=== PATIENT | male | born 1945 | race Caucasian/White ===

== ENCOUNTER → 2018-03-12 09:53 | Outpatient (CLI) | payer MEDICARE, SELFPAY ==
[2018-03-12 11:14] LABS: Add Manual Diff / Slide Review NO; Basophils Percent Auto 2.1 % (0-2); Eosinophils Percent Auto 3.5 % (2-4); Hematocrit 43.6 % (41-53); Hemoglobin 15.3 g/dL (13.5-17.5); Lymphocytes Percent Auto 28.5 % (25-40); Mean Corpuscular HGB Conc 35.2 % (30-36); Mean Corpuscular Hemoglobin 32.2 PG (26-34); Mean Corpuscular Volume 91.6 fL (80-100); Monocytes Percent Auto 8.7 % (3-14); Neutrophils Absolute Auto 4300 /uL (3000-5900); Neutrophils Percent Auto 57.2 % (50-75); Platelet Count 288 X10^3/uL (150-400); Red Blood Cell Count 4.76 X10^6/uL (4.5-5.9); Red Cell Distribution Width 13.5 % (11.6-14.8); White Blood Cell Count 7.4 X10^3/uL (4.5-11.0)
[2018-03-12 11:54] LABS: Alanine Aminotransferase 39 IU/L (21-72); Albumin 4.2 g/dL (3.5-5.0); Albumin Globulin Ratio 1.2 (1.0-2.8); Alkaline Phosphatase 39 U/L (38-126); Aspartate Aminotransferase 29 IU/L (17-59); Bilirubin Total 0.7 mg/dL (0.2-1.3); Blood Urea Nitrogen 19 mg/dL (9-20); Calcium 9.3 mg/dL (8.4-10.2); Carbon Dioxide 25 mmol/L (22-32); Chloride 105 mmol/L (98-107); Cholesterol 179 mg/dL (140-199); Estimated Glomerular Filt Rate > 60.0 mL/min (>60); Globulin 3.5 g/dL (1.7-4.1); Glucose 111 mg/dL (80-110); HDL Cholesterol 42 mg/dL (40-60); HEMOLYSIS < 15 (0-50); LDL Cholesterol Calculated 121 mg/dL (<100); Sodium 141 mmol/L (137-145); Total Protein 7.7 g/dL (6.3-8.2); Triglycerides 81 mg/dL (35-150)
[2018-03-12 12:19] LABS: Prostate Specific Antigen < 0.064 ng/mL (0.10-4.00)
== END ==
PROVIDERS: PCP Family Medicine; Visit Provider Family Medicine
DX: I10 Essential (primary) hypertension (principal); E78.00 Pure hypercholesterolemia, unspecified
CPT/HCPCS: 36415; 80053; 80061; 84153; 85025

== ENCOUNTER → 2019-09-16 10:22 | Outpatient (CLI) | payer MEDICARE, SELFPAY ==
[2019-09-16 11:58] LABS: Blood Urea Nitrogen 23 mg/dL (9-20); Calcium 9.9 mg/dL (8.4-10.2); Carbon Dioxide 22 mmol/L (22-32); Chloride 105 mmol/L (98-107); Estimated Glomerular Filt Rate > 60.0 mL/min (>60); Glucose 118 mg/dL (80-110); HEMOLYSIS < 15 (0-50); Potassium 4.2 mmol/L (3.4-5.1); Sodium 138 mmol/L (137-145)
[2019-09-16 12:13] LABS: Vitamin D 25 Hydroxy (D3) 26.7 ng/mL (30.0-100.0)
[2019-09-16 12:28] LABS: Prostate Specific Antigen < 0.064 ng/mL (0.10-4.00)
== END ==
PROVIDERS: PCP Student in an Organized Health Care Education/Training Program; Referring Provider Student in an Organized Health Care Education/Training Program; Visit Provider Student in an Organized Health Care Education/Training Program
DX: E55.9 Vitamin D deficiency, unspecified (principal); I10 Essential (primary) hypertension; Z85.46 Personal history of malignant neoplasm of prostate
CPT/HCPCS: 36415; 80048; 82306; 84153

== ENCOUNTER → 2019-10-28 12:44 | Outpatient (CLI) | payer MEDICARE, SELFPAY ==
[2019-10-31 06:56] LABS: Fecal Immunochemical Test Negative (Negative)
== END ==
PROVIDERS: PCP Student in an Organized Health Care Education/Training Program; Referring Provider Student in an Organized Health Care Education/Training Program; Visit Provider Student in an Organized Health Care Education/Training Program
DX: Z12.11 Encounter for screening for malignant neoplasm of colon (principal)
CPT/HCPCS: 82274

== ENCOUNTER → 2020-09-21 11:38 | Outpatient (CLI) | payer MEDICARE, SELFPAY ==
[2020-09-21 13:04] LABS: BUN Creatinine Ratio 16.3 (6-22); Blood Urea Nitrogen 16 mg/dL (9-20); Calcium 9.4 mg/dL (8.4-10.2); Carbon Dioxide 25 mmol/L (22-32); Chloride 104 mmol/L (98-107); Estimated Glomerular Filt Rate > 60.0 mL/min (>60); Glucose 136 mg/dL (80-110); HEMOLYSIS < 15 (0-50); Potassium 4.4 mmol/L (3.4-5.1); Sodium 134 mmol/L (137-145)
[2020-09-21 13:33] LABS: Prostate Specific Antigen < 0.064 ng/mL (0.10-4.00)
== END ==
PROVIDERS: PCP Student in an Organized Health Care Education/Training Program; Referring Provider Student in an Organized Health Care Education/Training Program; Visit Provider Student in an Organized Health Care Education/Training Program
DX: Z85.46 Personal history of malignant neoplasm of prostate (principal); I10 Essential (primary) hypertension
CPT/HCPCS: 36415; 80048; 84153

== ENCOUNTER → 2020-10-20 15:06 | Outpatient (CLI) | payer MEDICARE, SELFPAY ==
[2020-10-21 18:27] LABS: Fecal Immunochemical Test Negative (Negative)
== END ==
PROVIDERS: PCP Student in an Organized Health Care Education/Training Program; Referring Provider Student in an Organized Health Care Education/Training Program; Visit Provider Student in an Organized Health Care Education/Training Program
DX: Z12.11 Encounter for screening for malignant neoplasm of colon (principal)
CPT/HCPCS: 82274

== ENCOUNTER → 2021-09-13 10:47 | Outpatient (CLI) | payer MEDICARE, SELFPAY ==
[2021-09-13 14:36] LABS: Prostate Specific Antigen < 0.064 ng/mL (0.10-4.00)
[2021-09-13 14:43] LABS: Blood Urea Nitrogen 15 mg/dL (9-20); Calcium 9.4 mg/dL (8.4-10.2); Carbon Dioxide 24 mmol/L (22-32); Chloride 106 mmol/L (98-107); Estimated Glomerular Filt Rate > 60.0 mL/min (>60); Glucose 82 mg/dL (80-110); HEMOLYSIS 17 (0-50); Potassium 4.6 mmol/L (3.4-5.1); Sodium 138 mmol/L (137-145)
[2021-09-13 16:53] LABS: Vitamin D 25 Hydroxy (D3) 34.5 ng/mL (30.0-100.0)
== END ==
PROVIDERS: PCP Student in an Organized Health Care Education/Training Program; Referring Provider Student in an Organized Health Care Education/Training Program; Visit Provider Student in an Organized Health Care Education/Training Program
DX: Z85.46 Personal history of malignant neoplasm of prostate (principal); E55.9 Vitamin D deficiency, unspecified; E87.1 Hypo-osmolality and hyponatremia; I10 Essential (primary) hypertension
CPT/HCPCS: 36415; 80048; 82306; 84153

== ENCOUNTER → 2022-01-04 13:59 | Outpatient (CLI) | payer MEDICARE, SELFPAY ==
--- NOTE | 2022-01-04 14:02 | DI.RAD.S_ITS ---
PROCEDURE: XR SHOULDER LT MIN 2V INDICATIONS: shoulder pain TECHNIQUE: 3 views of the shoulder were acquired. COMPARISON: None. FINDINGS: Bones: Mildly displaced mid left clavicular fracture with nonunion. No suspicious bony lesions. Visualized ribs appear intact. Soft tissues: No suspicious soft tissue calcifications. 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 Dictated by: Roz Arechiga M.D. on 01/04/2022 at 16:26 Approved by: Roz Arechiga M.D. on 01/04/2022 at 16:26
== END ==
PROVIDERS: PCP Student in an Organized Health Care Education/Training Program; Referring Provider Nurse Practitioner Family; Visit Provider Nurse Practitioner Family
DX: S46.912A Strain of unspecified muscle, fascia and tendon at shoulder and upper arm level, left arm, initial encounter (principal); S42.022K Displaced fracture of shaft of left clavicle, subsequent encounter for fracture with nonunion
CPT/HCPCS: 73030

== ENCOUNTER → 2022-02-01 11:53 | Outpatient (CLI) | payer MEDICARE, SELFPAY ==
[2022-02-01 13:35] LABS: COVID19 -Nasal RAPID Negative (Negative)
== END ==
PROVIDERS: PCP Student in an Organized Health Care Education/Training Program; Visit Provider Surgery
DX: Z20.822 Contact with and (suspected) exposure to COVID-19 (principal); Z01.812 Encounter for preprocedural laboratory examination
CPT/HCPCS: 87635; C9803

== ENCOUNTER 2022-02-02 10:37 | Day surgery (SDC) | payer MEDICARE, SELFPAY ==
[2022-02-02] VITALS (7 sets, daily range): BP systolic 95–139; BP diastolic 59–88; PULSE 81–97; RESP 16–19; TEMP 35.8–36.1; O2SAT 94–98; BMI 31.1
--- NOTE | 2022-02-02 | PATH_ITS ---
[facility] Accession Number: [id number] . 01 Material submitted: . colon - TRANSVERSE COLON POLYP . 01 Clinical history: . COLONOSCOPY ENCOUNTER FOR SCREENING FOR MALIGNANT NEOPLASM . 01 Diagnosis: Tranverse Colon Polyp, Biopsy: Tubular adenoma. MRV 02/06/2022 1159 Local . 01 Electronically signed: . Raz Leigh MD, PhD, Pathologist NPI- [id number] . 01 Gross description: . TRANSVERSE COLON POLYP: Received in formalin are 2 fragment(s) of tucker, soft tissue measuring 0.3 x 0.2 x 0.2 cm to 0.3 x 0.1 x 0.1 cm submitted entirely in 1 cassette(s) /CPE 02/03/2022 0329 Local . 01 Pathologist provided ICD-10: D12.3 . 01 CPT . 909330 Specimen Comment: A courtesy copy of this report has been sent to [phone] Performed at: 01 [facility] [address] [place] [address] [address] [facility], [place], [place] [id number] MD Jonh Retana MD Phone: [phone]
[2022-02-02] MEDS: LACTATED RINGERS 1,000 ML 200 ML IV (11:21)
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
[2022-02-02] MEDS: MIDAZOLAM 5 MG/5 ML VIAL 6 MG IV (12:08)
[2022-02-02] MEDS: fentaNYL 250 MCG/5 ML INJ 100 MCG IV (12:08)
--- NOTE | 2022-02-02 12:15 | PM.OP.COLON ---
Operative Date/Time/Diagnoses Date of procedure: 02/02/22 Time of procedure: 12:15 Pre-op diagnosis: Personal history of colonic polyps Post-op diagnosis: same Procedure & Clinicians Study performed: Colonoscopy Same procedure as scheduled: Yes Indications: Personal history of colonic polyps Surgeon: David Martinez Procedure Notes Procedure in detail: Medications: Conscious sedation using 6mg IV midazolam and 100mcg IV of fentanyl The history and physical was performed/updated and the patient is ASA class is 2. The procedure was discussed in detail with the patient. Potential risks complications including infection, bleeding, missed diagnosis, perforation, need for surgery, and were explained. Their questions were answered and informed consent was obtained. Patient was brought to the procedure room and placed standard monitoring equipment. The patient's vital signs were monitored continuously throughout the entire procedure. Prior to starting time-out was performed. The patient was placed in the left lateral recumbent position. Procedural sedation was administered. Examination began with a thorough inspection of the perianal area there was no evidence of fissures, fistulae, external hemorrhoids or cutaneous malignancy. The colonoscopy scope was then placed into the anal canal and was advanced to the cecum, which was identified by the ileocecal valve, the appendiceal orifice and the confluence of the taenia. The scope was then slowly withdrawn examining colon thoroughly in all directions, irrigating it of any residual stool. FINDINGS 1. Transverse colon-8 mm a polyp removed with cold snare 2. Sigmoid [id number] 3. Internal hemorrhoids The patient tolerated the procedure well. They will be discharged once criteria are met. The prep was of good/excellent quality. The withdrawl time was 6 minutes. The sedation time was 23 minutes. Specimen(s): other (Transverse colonic polyp) Complications: none Impression: Colonic polyp Post-procedure Recommendations: Colonoscopy in 5 years and High fiber diet Disposition: same day surgery
== END 2022-02-02 12:50 | disposition home or self-care (01) ==
PROVIDERS: PCP Student in an Organized Health Care Education/Training Program; Referring Provider Surgery; Visit Provider Surgery
PROC: 0DJD8ZZ Inspection of Lower Intestinal Tract, Via Natural or Artificial Opening Endoscopic (ICD-10-PCS; CPT 45378; principal; 2022-02-02 12:45)
DX: Z12.11 Encounter for screening for malignant neoplasm of colon (principal); Z86.010 Personal history of colon polyps; K57.30 Diverticulosis of large intestine without perforation or abscess without bleeding; K64.8 Other hemorrhoids; J44.9 Chronic obstructive pulmonary disease, unspecified; I10 Essential (primary) hypertension; E78.5 Hyperlipidemia, unspecified; F41.9 Anxiety disorder, unspecified; Z85.820 Personal history of malignant melanoma of skin; D12.3 Benign neoplasm of transverse colon
CPT/HCPCS: 45385; 99152; J2250; J3010

== ENCOUNTER 2022-03-21 09:45 | Outpatient (RCR) | payer MEDICARE, SELFPAY ==
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
--- NOTE | 2022-02-20 17:24 | PT.OPPOC ---
Physical, Occupational & Speech Therapy At [facility] Current Diagnoses Other specific arthropathies, not elsewhere classified, left shoulder (02/20/22) Fracture of unspecified part of left clavicle, subsequent encounter for fracture with nonunion (02/20/22) Visit Care Team Role Provider Type Tariq Schaefer MD Attending Provider Physician Family Provider Primary Care Provider Referring Provider Specialty: Internal Medicine Address: [address] [place] [address], [facility] [address], [address] Email: [email or web address] Plan Of Care PT-OP-T Assessment and Plan Start: 02/16/22 16:52 Freq: Status: Active Protocol: Document 02/20/22 15:16 SAK (Rec: 02/20/22 15:46 SAK [id number]) Physical Therapy Assessment Rehab Potential Rehabilitation Potential Good Evaluation Complexity Number of Personal Factors/Comorbidities 1-2 Number of Body Systems Impaired 3 Clinical Presentation at Evaluation Evolving Impairments Impairments Pain,Posture,ROM,Strength Goals Strength Impairment weakness Impairment left shoulder weakness Short Term Goal (STG) patient to be instructed in HEP focused on left shoulder strengthening and stabilization STG Duration 03/23/22 Nursing Home Goal (LTG) Patient will be independent and compliant with HEP and demonstrate 5/5 muscle strength left shoulder to help him return to all usual activities. LTG Duration 05/21/22 activity tolerance Impairment unable to reach overhead or behind his back with left UE without pain Nursing Home Goal (LTG) patient will demonstrate the ability to reach overhead and behind his back without pain or impingement symptoms to allow him to return to all prior activities including ADL 's and gardening LTG Duration 05/21/22 shoulder pain Impairment as high as 7/10 Nursing Home Goal (LTG) Decrease left shoulder pain to no greater than 2/10 with all usual activities LTG Duration 05/21/22 Assessment Summary Assessment Patient is a 76 year old man presenting to PT with c/o left shoulder pain after moving large rock in his garden. Symptoms have improved some since initial injury 4 months ago, but pain and some impingement symptoms persist, and he has limitations in his range of motion and strength in the left shoulder as well as postural impairment which appears contributory to his persistent symptoms. Additionally has old left clavicular fracture which healed poorly which is likely contributory as well. Feel he would benefit from PT to decrease his pain, improve his ROM, strength, and functional use of his left UE to allow him to return to al prior activities. He is highly motivated and agreed with POC. Physical Therapy Plan Frequency and Duration Frequency of Treatment 2x/Week Duration of Treatment 12 weeks Plan of Care Start Date 02/20/22 Plan of Care End Date 05/21/22 Therapeutic Interventions Therapeutic Interventions Home Exercise Program,Manual Therapy,Patient/Caregiver Education,Self-Care/Home Management,Soft Tissue Mobilization,Taping, Therapeutic Activities, Therapeutic Exercises Modalities Cold Pack/Ice Massage,Electric Stimulation,Hot Packs, Iontophoresis,Ultrasound Next Visit Focus/Plan Next Note Type Treatment Note Next Visit Plan Review HEP, postural education with ther ex for postural correction to improve shoulder alignment, ROM and strengthening exercises. Modalities and manual therapy as indicated. Plan of Care Dates Plan of Care Start Date 02/20/22 Plan of Care End Date 05/21/22 Electronically Signed by: Trang Musa, PT 02/21/22 [id number] If you are in agreement with this Plan of Care, please return a signed and dated copy. I have reviewed this Plan of Care and certify that the skilled therapy services above are required to meet the patient?s needs. Physician Signature Date Printed Name and Credentials Clinical Instructor Signature Printed Name and Credentials
--- NOTE | 2022-02-28 17:25 | PT.OTN ---
Current Diagnoses Other specific arthropathies, not elsewhere classified, left shoulder (02/28/22) Fracture of unspecified part of left clavicle, subsequent encounter for fracture with nonunion (02/28/22) Physical Therapy Treatment Note PT-OP-A Visit Information Start: 02/16/22 16:52 Freq: Status: Active Protocol: Document 02/28/22 15:14 SAK (Rec: 02/28/22 15:57 [facility] [id number]) Out-Patient Physical Therapy Visit Information Visit Information Visit Type Treatment Note Visit Start Time 15:15 Visit Stop Time 16:10 Total Visit Minutes 55 Visit Number 2 Evaluation Information Evaluation Date 02/20/22 PT-OP-B Current Condition Start: 02/16/22 16:52 Freq: Status: Active Protocol: Document 02/20/22 15:16 SAK (Rec: 02/20/22 15:46 SAK [id number]) Current Condition History of Current Condition Onset Date 4 months Current Complaints left shoulder pain History of Current Condition moving a large rock in flower beds on a dol[place], pulling back , within the next week onset of pain. Prior surgery due to impingement in 97 or 98. When pain first started felt like the prior impingement. Saw Dr. Schaefer, got pain pills due to interrupted sleep. Now never wakes him up, but still some difficulty lifting overhead and behind his back. Prior fractured clavicle with poor healing. Carpal tunnel syndrome. Not doing any exercises Prior Treatments and Tests x-ray Future Testing and Treatments Planned return to doctor if PT not helpful. Prior Functional Status Baseline Function- ADL's Independent Baseline Function- Mobility Independent Baseline Function- Work/School retired Baseline Function- Recreation/Hobbies no limitations Current Functional Impairments (Reported) Functional Limitations- ADL's painful Functional Limitations- Recreation/ painful Hobbies PT-OP-C Subjective Start: 02/16/22 16:52 Freq: Status: Active Protocol: Document 02/28/22 15:14 SAK (Rec: 02/28/22 15:57 [facility] [id number]) OP-PT Subjective Patient Comments Patient Comments Feeling about 50%, using 8 pounds for overhead press, doing HEP, still feeling some tightness. PT-OP-H Neuro Start: 02/16/22 16:52 Freq: Status: Active Protocol: Document 02/20/22 15:16 SAK (Rec: 02/20/22 15:46 [facility] [id number]) Sensation Evaluation Gross Sensation Gross Sensation WNL Comments Summary Comments initially some N/T, no longer PT-OP-J Posture/Palpation/Skin Start: 02/16/22 16:52 Freq: Status: Active Protocol: Document 02/20/22 15:16 [facility] (Rec: 02/21/22 17:21 [facility] [id number]) Posture Evaluation Position Standing Head/C-Spine Posture Forward Head T-Spine Posture Increased Kyphosis Scapula Posture (L) Protracted,(R) Protracted Arm Posture (L) Internally Rotated,(R) Internally Rotated Palpation Assessment Location RC left Palpation Findings Muscle Guarding,Tenderness PT-OP-K Range of Motion Start: 02/16/22 16:52 Freq: Status: Active Protocol: Document 02/20/22 15:16 [facility] (Rec: 02/20/22 15:46 [facility] [id number]) Cervical Spine Range of Motion Cervical Spine Active Testing Position Sitting Comments mild tightness, no increase in pain Shoulder Goniometric Range of Motion Shoulder Left Active Shoulder ROM WFL No Flexion 154 Extension 14 Abduction 123 External Rotation at 45 degrees 56 Abduction Internal Rotation Behind Back (text) top of buttock Right Active Shoulder ROM WFL Yes Internal Rotation Behind Back (text) T8 Shoulder ROM Limitations Shoulder ROM Limitations Pain Elbow/Forearm Range of Motion Elbow/Forearm jojo Elbow/Forearm ROM WFL Yes PT-OP-L Special Tests Start: 02/16/22 16:52 Freq: Status: Active Protocol: Document 02/20/22 15:16 [facility] (Rec: 02/21/22 17:21 [facility] [id number]) Special Tests Shoulder Special Tests Elevation Impingement Test Results positive Grind Labrum Test Results negative AC Joint Compression Test Results positive Belly Press Test Results negative PT-OP-M Strength Start: 02/16/22 16:52 Freq: Status: Active Protocol: Document 02/20/22 15:16 [facility] (Rec: 02/21/22 17:21 [facility] [id number]) Shoulder Strength Shoulder Manual Muscle Testing Left Flexion 3- Fair- Extension 4- Good- Abduction (C5) 3- Fair- External Rotation 3+ Fair+ Internal Rotation 4- Good- Right Flexion 5 Normal Extension 5 Normal Abduction (C5) 5 Normal Adduction 5 Normal External Rotation 4+ Good+ Internal Rotation 5 Normal PT-OP-Q Treatments Start: 02/16/22 16:52 Freq: Status: Active Protocol: Document 02/28/22 15:14 [facility] (Rec: 02/28/22 15:57 [facility] [id number]) Therapeutic Exercises Supine Exercises pec stretch Reps/Minutes 60 sec Comments manual Sidelying Exercises open book Reps/Minutes 5x Comments verbal and tactile cues for segmental movement, painfree ROM Sitting Exercises pulleys Sitting Exercise Name flexion, scaption Reps/Minutes 10x ea Standing Exercises IR stretch Equipment Used towel Reps/Minutes 2x30 Comments cues for neutral posture shoulder ER Side bilateral Resistance L2 TB Equipment Used wall Reps/Minutes 10x Comments verbal and tactile cues posture and scapular activation row, shld ext Equipment Used L2 TB Reps/Minutes 10x Comments VC and tactile cues posture and scapular activation Manual Therapy Treatment Soft Tissue Mobilization left shoulder Body Location pec shannon,pec min, rc Mobilization Type Cross-Friction,Myofascial Release,Strumming,Sustained Pressure Intensity/Depth Moderate Body Position Hooklying Joint Mobilizations left shoulder Joint GH Direction post Grade III Comments good feedback response. Self-Care/Home Management Treatment Education Other Education added open book PT-OP-R Modalities Start: 02/16/22 16:52 Freq: Status: Active Protocol: Document 02/28/22 15:14 [facility] (Rec: 02/28/22 15:57 [facility] [id number]) Hot Pack/Cold Pack Treatment Cold Pack Location left shoulder Patient Position Hooklying Treatment Duration (minutes) 10 Patient Tolerance Good PT-OP-T Assessment and Plan Start: 02/16/22 16:52 Freq: Status: Active Protocol: Document 02/28/22 15:14 [facility] (Rec: 02/28/22 15:57 [facility] [id number]) Physical Therapy Assessment Impairments Impairments Pain,Posture,ROM,Strength Goals Strength Impairment weakness Impairment left shoulder weakness Short Term Goal (STG) patient to be instructed in HEP focused on left shoulder strengthening and stabilization STG Duration 03/23/22 Longterm Goal (LTG) Patient will be independent and compliant with HEP and demonstrate 5/5 muscle strength left shoulder to help him return to all usual activities. LTG Duration 05/21/22 activity tolerance Impairment unable to reach overhead or behind his back with left UE without pain Longterm Goal (LTG) patient will demonstrate the ability to reach overhead and behind his back without pain or impingement symptoms to allow him to return to all prior activities including ADL 's and gardening LTG Duration 05/21/22 shoulder pain Impairment as high as 7/10 [place] Goal (LTG) Decrease left shoulder pain to no greater than 2/10 with all usual activities LTG Duration 05/21/22 Assessment Summary Assessment Decreased pain per patient report. Moderate cues for scapular activation, segmental movement. Urged caution to not overdo with ther ex, stay in pain-free intensity, emphasis on postural correction. Physical Therapy Plan Frequency and Duration Frequency of Treatment 2x/Week Duration of Treatment 12 weeks Plan of Care Start Date 02/20/22 Plan of Care End Date 05/21/22 Therapeutic Interventions Therapeutic Interventions Home Exercise Program,Manual Therapy,Patient/Caregiver Education,Self-Care/Home Management,Soft Tissue Mobilization,Taping, Therapeutic Activities, Therapeutic Exercises Modalities Cold Pack/Ice Massage,Electric Stimulation,Hot Packs, Iontophoresis,Ultrasound Next Visit Focus/Plan Next Note Type Treatment Note Next Visit Plan Review HEP, postural education with ther ex for postural correction to improve shoulder alignment, ROM and strengthening exercises. Modalities and manual therapy as indicated.
--- NOTE | 2022-03-03 16:08 | PT.OTN ---
Current Diagnoses Other specific arthropathies, not elsewhere classified, left shoulder (03/03/22) Fracture of unspecified part of left clavicle, subsequent encounter for fracture with nonunion (03/03/22) Physical Therapy Treatment Note PT-OP-A Visit Information Start: 02/16/22 16:52 Freq: Status: Active Protocol: Document 03/03/22 14:26 NBM (Rec: 03/03/22 16:08 NBM [id number]) Out-Patient Physical Therapy Visit Information Visit Information Visit Type Treatment Note Visit Start Time 14:30 Visit Stop Time 15:15 Total Visit Minutes 45 Visit Number 3 Number of [employer] Visits 1 PT-OP-B Current Condition Start: 02/16/22 16:52 Freq: Status: Active Protocol: Document 02/20/22 15:16 SAK (Rec: 02/20/22 15:46 SAK [id number]) Current Condition History of Current Condition Onset Date 4 months Current Complaints left shoulder pain History of Current Condition moving a large rock in flower beds on a [place], pulling back , within the next week onset of pain. Prior surgery due to impingement in 97 or 98. When pain first started felt like the prior impingement. Saw Dr. Schaefer, got pain pills due to interrupted sleep. Now never wakes him up, but still some difficulty lifting overhead and behind his back. Prior fractured clavicle with poor healing. Carpal tunnel syndrome. Not doing any exercises Prior Treatments and Tests x-ray Future Testing and Treatments Planned return to doctor if PT not helpful. Prior Functional Status Baseline Function- ADL's Independent Baseline Function- Mobility Independent Baseline Function- Work/School retired Baseline Function- Recreation/Hobbies no limitations Current Functional Impairments (Reported) Functional Limitations- ADL's painful Functional Limitations- Recreation/ painful Hobbies PT-OP-C Subjective Start: 02/16/22 16:52 Freq: Status: Active Protocol: Document 03/03/22 14:26 NBM (Rec: 03/03/22 16:08 [facility] [id number]) OP-PT Subjective Patient Comments Patient Comments Pt reports his Left shoulder is feeling better overall, sometimes it catches when doing exercises. He really likes the open book stretch. PT-OP-H Neuro Start: 02/16/22 16:52 Freq: Status: Active Protocol: Document 02/20/22 15:16 SAK (Rec: 02/20/22 15:46 [facility] [id number]) Sensation Evaluation Gross Sensation Gross Sensation WNL Comments Summary Comments initially some N/T, no longer PT-OP-J Posture/Palpation/Skin Start: 02/16/22 16:52 Freq: Status: Active Protocol: Document 02/20/22 15:16 [facility] (Rec: 02/21/22 17:21 [facility] [id number]) Posture Evaluation Position Standing Head/C-Spine Posture Forward Head T-Spine Posture Increased Kyphosis Scapula Posture (L) Protracted,(R) Protracted Arm Posture (L) Internally Rotated,(R) Internally Rotated Palpation Assessment Location RC left Palpation Findings Muscle Guarding,Tenderness PT-OP-K Range of Motion Start: 02/16/22 16:52 Freq: Status: Active Protocol: Document 02/20/22 15:16 [facility] (Rec: 02/20/22 15:46 [facility] [id number]) Cervical Spine Range of Motion Cervical Spine Active Testing Position Sitting Comments mild tightness, no increase in pain Shoulder Goniometric Range of Motion Shoulder Left Active Shoulder ROM WFL No Flexion 154 Extension 14 Abduction 123 External Rotation at 45 degrees 56 Abduction Internal Rotation Behind Back (text) top of buttock Right Active Shoulder ROM WFL Yes Internal Rotation Behind Back (text) T8 Shoulder ROM Limitations Shoulder ROM Limitations Pain Elbow/Forearm Range of Motion Elbow/Forearm jojo Elbow/Forearm ROM WFL Yes PT-OP-L Special Tests Start: 02/16/22 16:52 Freq: Status: Active Protocol: Document 02/20/22 15:16 [facility] (Rec: 02/21/22 17:21 [facility] [id number]) Special Tests Shoulder Special Tests Elevation Impingement Test Results positive Grind Labrum Test Results negative AC Joint Compression Test Results positive Belly Press Test Results negative PT-OP-M Strength Start: 02/16/22 16:52 Freq: Status: Active Protocol: Document 02/20/22 15:16 [facility] (Rec: 02/21/22 17:21 [facility] [id number]) Shoulder Strength Shoulder Manual Muscle Testing Left Flexion 3- Fair- Extension 4- Good- Abduction (C5) 3- Fair- External Rotation 3+ Fair+ Internal Rotation 4- Good- Right Flexion 5 Normal Extension 5 Normal Abduction (C5) 5 Normal Adduction 5 Normal External Rotation 4+ Good+ Internal Rotation 5 Normal PT-OP-Q Treatments Start: 02/16/22 16:52 Freq: Status: Active Protocol: Document 03/03/22 14:26 [facility] (Rec: 03/03/22 16:08 [facility] [id number]) Therapeutic Exercises Supine Exercises pec stretch Reps/Minutes 60 sec Comments manual Sidelying Exercises open book Sidelying Exercise Name pillow support between knees/ ankles. Side bilateral Reps/Minutes 5x x 5-10SH Comments verbal and tactile cues for segmental movement, painfree ROM Sitting Exercises pulleys Sitting Exercise Name flexion, scaption, abduction Reps/Minutes 10x ea Standing Exercises IR stretch Equipment Used towel Reps/Minutes 2x30 Comments cues for neutral posture shoulder ER Side bilateral Resistance L2 TB Equipment Used wall Reps/Minutes 10x Comments verbal and tactile cues posture and scapular activation row, shld ext Equipment Used L2 TB Reps/Minutes 10x Comments VC and tactile cues posture and scapular activation Manual Therapy Treatment Soft Tissue Mobilization left shoulder Body Location pec shannon,pec min, rc Mobilization Type Cross-Friction,Myofascial Release,Strumming,Sustained Pressure Intensity/Depth Moderate Body Position Hooklying Joint Mobilizations left shoulder Joint GH Direction post Grade II Body Position Supine Comments good feedback response. PT-OP-R Modalities Start: 02/16/22 16:52 Freq: Status: Active Protocol: Document 03/03/22 14:26 [facility] (Rec: 03/03/22 16:08 [facility] [id number]) Hot Pack/Cold Pack Treatment Cold Pack Location left shoulder Patient Position Hooklying Treatment Duration (minutes) 10 Patient Tolerance Good PT-OP-T Assessment and Plan Start: 02/16/22 16:52 Freq: Status: Active Protocol: Document 03/03/22 14:26 [facility] (Rec: 03/03/22 16:08 [facility] [id number]) Physical Therapy Assessment Goals Strength Impairment weakness Impairment left shoulder weakness Short Term Goal (STG) patient to be instructed in HEP focused on left shoulder strengthening and stabilization STG Duration 03/23/22 Agent Goal (LTG) Patient will be independent and compliant with HEP and demonstrate 5/5 muscle strength left shoulder to help him return to all usual activities. LTG Duration 05/21/22 activity tolerance Impairment unable to reach overhead or behind his back with left UE without pain Snf Goal (LTG) patient will demonstrate the ability to reach overhead and behind his back without pain or impingement symptoms to allow him to return to all prior activities including ADL 's and gardening LTG Duration 05/21/22 shoulder pain Impairment as high as 7/10 Agent Goal (LTG) Decrease left shoulder pain to no greater than 2/10 with all usual activities LTG Duration 05/21/22 Assessment Summary Assessment Gideon requires cues for form w/ posterior chain exercises, open book stretch, and seated pulleys, primarily for UT overactivation and scapular setting. Pt's self-awareness improves w/ repetition and visual feedback. Pt to check instructions before performing HEP at home. Physical Therapy Plan Next Visit Focus/Plan Next Note Type Treatment Note Next Visit Plan Review HEP, postural education with ther ex for postural correction to improve shoulder alignment, ROM and strengthening exercises. Modalities and manual therapy as indicated.
--- NOTE | 2022-03-07 19:33 | PT.OTN ---
Current Diagnoses Other specific arthropathies, not elsewhere classified, left shoulder (03/07/22) Fracture of unspecified part of left clavicle, subsequent encounter for fracture with nonunion (03/07/22) Physical Therapy Treatment Note PT-OP-A Visit Information Start: 02/16/22 16:52 Freq: Status: Active Protocol: Document 03/07/22 15:31 NBM (Rec: 03/07/22 19:32 NBM [id number]) Out-Patient Physical Therapy Visit Information Visit Information Visit Type Treatment Note Visit Start Time 15:18 Visit Stop Time 16:08 Total Visit Minutes 50 Visit Number 4 Number of PYTHON PROGRAMMER Visits 2 PT-OP-B Current Condition Start: 02/16/22 16:52 Freq: Status: Active Protocol: Document 02/20/22 15:16 SAK (Rec: 02/20/22 15:46 SAK [id number]) Current Condition History of Current Condition Onset Date 4 months Current Complaints left shoulder pain History of Current Condition moving a large rock in flower beds on a dol[place], pulling back , within the next week onset of pain. Prior surgery due to impingement in 97 or 98. When pain first started felt like the prior impingement. Saw Dr. Schaefer, got pain pills due to interrupted sleep. Now never wakes him up, but still some difficulty lifting overhead and behind his back. Prior fractured clavicle with poor healing. Carpal tunnel syndrome. Not doing any exercises Prior Treatments and Tests x-ray Future Testing and Treatments Planned return to doctor if PT not helpful. Prior Functional Status Baseline Function- ADL's Independent Baseline Function- Mobility Independent Baseline Function- Work/School retired Baseline Function- Recreation/Hobbies no limitations Current Functional Impairments (Reported) Functional Limitations- ADL's painful Functional Limitations- Recreation/ painful Hobbies PT-OP-C Subjective Start: 02/16/22 16:52 Freq: Status: Active Protocol: Document 03/07/22 15:31 NBM (Rec: 03/07/22 19:32 NBM [id number]) OP-PT Subjective Patient Comments Patient Comments Pt reports his left shoulder is much better. He likes the stretching exercises but doesn 't do the theraband exercises as much. His pain is better over the last few weeks so he started doing shoulder presses w/ 8#. PT-OP-H Neuro Start: 02/16/22 16:52 Freq: Status: Active Protocol: Document 02/20/22 15:16 [facility] (Rec: 02/20/22 15:46 [facility] [id number]) Sensation Evaluation Gross Sensation Gross Sensation WNL Comments Summary Comments initially some N/T, no longer PT-OP-J Posture/Palpation/Skin Start: 02/16/22 16:52 Freq: Status: Active Protocol: Document 02/20/22 15:16 [facility] (Rec: 02/21/22 17:21 [facility] [id number]) Posture Evaluation Position Standing Head/C-Spine Posture Forward Head T-Spine Posture Increased Kyphosis Scapula Posture (L) Protracted,(R) Protracted Arm Posture (L) Internally Rotated,(R) Internally Rotated Palpation Assessment Location RC left Palpation Findings Muscle Guarding,Tenderness PT-OP-K Range of Motion Start: 02/16/22 16:52 Freq: Status: Active Protocol: Document 02/20/22 15:16 [facility] (Rec: 02/20/22 15:46 [facility] [id number]) Cervical Spine Range of Motion Cervical Spine Active Testing Position Sitting Comments mild tightness, no increase in pain Shoulder Goniometric Range of Motion Shoulder Left Active Shoulder ROM WFL No Flexion 154 Extension 14 Abduction 123 External Rotation at 45 degrees 56 Abduction Internal Rotation Behind Back (text) top of buttock Right Active Shoulder ROM WFL Yes Internal Rotation Behind Back (text) T8 Shoulder ROM Limitations Shoulder ROM Limitations Pain Elbow/Forearm Range of Motion Elbow/Forearm jojo Elbow/Forearm ROM WFL Yes PT-OP-L Special Tests Start: 02/16/22 16:52 Freq: Status: Active Protocol: Document 02/20/22 15:16 [facility] (Rec: 02/21/22 17:21 [facility] [id number]) Special Tests Shoulder Special Tests Elevation Impingement Test Results positive Grind Labrum Test Results negative AC Joint Compression Test Results positive Belly Press Test Results negative PT-OP-M Strength Start: 02/16/22 16:52 Freq: Status: Active Protocol: Document 02/20/22 15:16 [facility] (Rec: 02/21/22 17:21 [facility] [id number]) Shoulder Strength Shoulder Manual Muscle Testing Left Flexion 3- Fair- Extension 4- Good- Abduction (C5) 3- Fair- External Rotation 3+ Fair+ Internal Rotation 4- Good- Right Flexion 5 Normal Extension 5 Normal Abduction (C5) 5 Normal Adduction 5 Normal External Rotation 4+ Good+ Internal Rotation 5 Normal PT-OP-Q Treatments Start: 02/16/22 16:52 Freq: Status: Active Protocol: Document 03/07/22 15:31 NB (Rec: 03/07/22 19:32 [facility] [id number]) Therapeutic Exercises Supine Exercises pec stretch Supine Exercise Name W>T (bend elbows to return) Equipment Used 1/2 foam roll Reps/Minutes 60 sec ea Comments w/ gentle manual overpressure Prone Exercises UE Posterior Chain Prone Exercise Name I, A, W, T Side bilateral Equipment Used 0#, 3# (5# too challenging) Comments Improved mm recruitment, Pt unable to tolerate Y Sitting Exercises pulleys Sitting Exercise Name flexion, scaption, abduction Reps/Minutes 10x ea Standing Exercises Personal HEP Review Standing Exercise Name Alt Biceps curls sup/pron, Shoulder press, Overhead Triceps extension Side bilateral Resistance 7# Equipment Used dumbell Reps/Minutes 5 ea Comments pn in L teresa w/ overhead ex - pt agrees to d/c - see Self- care IR stretch Equipment Used towel Reps/Minutes 2x30 shoulder ER Side bilateral Resistance L3 TB Reps/Minutes 10x Comments verbal and tactile cues posture and scapular depression row, shld ext Equipment Used L3 TB Reps/Minutes 10x 3-5 SH Comments VC and tactile cues posture, scapular depression, and slow eccentric Self-Care/Home Management Treatment Education Patient Education Home Exercise Program Other Education Reviewed pt's personal HEP: w/ 8# weights: biceps curls supinated/pronated, shoulder press (pain in L teresa), overhead triceps extension ( pain in L teresa): educated pt in shoulder elevation/depression , protraction/retraction and discussed UT overcruitment. Pt recognized how overhead exercises could contribute to L shoulder pain and agreed to avoid for now and focus on PT HEP. Pt given Lvl 3 TB for Posterior chain strengthening in HEP. PT-OP-R Modalities Start: 02/16/22 16:52 Freq: Status: Active Protocol: Document 03/03/22 14:26 NB (Rec: 03/03/22 16:08 [facility] [id number]) Hot Pack/Cold Pack Treatment Cold Pack Location left shoulder Patient Position Hooklying Treatment Duration (minutes) 10 Patient Tolerance Good PT-OP-T Assessment and Plan Start: 02/16/22 16:52 Freq: Status: Active Protocol: Document 03/07/22 15:31 [facility] (Rec: 03/07/22 19:32 [facility] [id number]) Physical Therapy Assessment Goals Strength Impairment weakness Impairment left shoulder weakness Short Term Goal (STG) patient to be instructed in HEP focused on left shoulder strengthening and stabilization STG Duration 03/23/22 Penitentiary Goal (LTG) Patient will be independent and compliant with HEP and demonstrate 5/5 muscle strength left shoulder to help him return to all usual activities. LTG Duration 05/21/22 activity tolerance Impairment unable to reach overhead or behind his back with left UE without pain Bioinformatics Research Technician Goal (LTG) patient will demonstrate the ability to reach overhead and behind his back without pain or impingement symptoms to allow him to return to all prior activities including ADL 's and gardening LTG Duration 05/21/22 shoulder pain Impairment as high as 7/10 Bioinformatics Research Technician Goal (LTG) Decrease left shoulder pain to no greater than 2/10 with all usual activities LTG Duration 05/21/22 Assessment Summary Assessment Gideon presents today w/ decreased pain overall and self-progression of overhead home HEP which sometimes hurts . Treatment focus today on HEP review (personal and PT) and education for strengthening scapular depressors and retractors for improved L upper extremity functional movement and posture. Pt demonstrates understanding by end of session. Pt continues to be challenged w/ UT overrecruitment but demonstrates improved self- awareness by end of treatment session. Pt shows improved scapular depressor engagement w/ Lvl 3 Theraband resistance for posterior chain strengthening - given to pt for HEP. Physical Therapy Plan Next Visit Focus/Plan Next Note Type Treatment Note Next Visit Plan Review HEP, postural education with ther ex for postural correction to improve shoulder alignment, ROM and strengthening exercises. Modalities and manual therapy as indicated.
--- NOTE | 2022-03-10 10:35 | PT.OTN ---
Current Diagnoses Other specific arthropathies, not elsewhere classified, left shoulder (03/10/22) Fracture of unspecified part of left clavicle, subsequent encounter for fracture with nonunion (03/10/22) Physical Therapy Treatment Note PT-OP-A Visit Information Start: 02/16/22 16:52 Freq: Status: Active Protocol: Document 03/10/22 09:49 SP (Rec: 03/10/22 10:36 SP [id number]) Out-Patient Physical Therapy Visit Information Visit Information Visit Type Treatment Note Visit Start Time 09:49 Visit Stop Time 10:35 Total Visit Minutes 46 Visit Number 5 Number of MACHINE REPAIRER Visits 3 Evaluation Information Evaluation Date 02/20/22 PT-OP-B Current Condition Start: 02/16/22 16:52 Freq: Status: Active Protocol: Document 02/20/22 15:16 SAK (Rec: 02/20/22 15:46 SAK [id number]) Current Condition History of Current Condition Onset Date 4 months Current Complaints left shoulder pain History of Current Condition moving a large rock in flower beds on a [place], pulling back , within the next week onset of pain. Prior surgery due to impingement in 97 or 98. When pain first started felt like the prior impingement. Saw Dr. Schaefer, got pain pills due to interrupted sleep. Now never wakes him up, but still some difficulty lifting overhead and behind his back. Prior fractured clavicle with poor healing. Carpal tunnel syndrome. Not doing any exercises Prior Treatments and Tests x-ray Future Testing and Treatments Planned return to doctor if PT not helpful. Prior Functional Status Baseline Function- ADL's Independent Baseline Function- Mobility Independent Baseline Function- Work/School retired Baseline Function- Recreation/Hobbies no limitations Current Functional Impairments (Reported) Functional Limitations- ADL's painful Functional Limitations- Recreation/ painful Hobbies PT-OP-C Subjective Start: 02/16/22 16:52 Freq: Status: Active Protocol: Document 03/10/22 09:49 SP (Rec: 03/10/22 10:36 SP [id number]) OP-PT Subjective Patient Comments Patient Comments Pt reports doing well with HEP but unableto do laying on foam roller and introduced incorporates home bike with UE >LE mobility warm ups, 3x/day 5-7 min. PT-OP-H Neuro Start: 02/16/22 16:52 Freq: Status: Active Protocol: Document 02/20/22 15:16 [facility] (Rec: 02/20/22 15:46 [facility] [id number]) Sensation Evaluation Gross Sensation Gross Sensation WNL Comments Summary Comments initially some N/T, no longer PT-OP-J Posture/Palpation/Skin Start: 02/16/22 16:52 Freq: Status: Active Protocol: Document 02/20/22 15:16 [facility] (Rec: 02/21/22 17:21 [facility] [id number]) Posture Evaluation Position Standing Head/C-Spine Posture Forward Head T-Spine Posture Increased Kyphosis Scapula Posture (L) Protracted,(R) Protracted Arm Posture (L) Internally Rotated,(R) Internally Rotated Palpation Assessment Location RC left Palpation Findings Muscle Guarding,Tenderness PT-OP-K Range of Motion Start: 02/16/22 16:52 Freq: Status: Active Protocol: Document 02/20/22 15:16 [facility] (Rec: 02/20/22 15:46 [facility] [id number]) Cervical Spine Range of Motion Cervical Spine Active Testing Position Sitting Comments mild tightness, no increase in pain Shoulder Goniometric Range of Motion Shoulder Left Active Shoulder ROM WFL No Flexion 154 Extension 14 Abduction 123 External Rotation at 45 degrees 56 Abduction Internal Rotation Behind Back (text) top of buttock Right Active Shoulder ROM WFL Yes Internal Rotation Behind Back (text) T8 Shoulder ROM Limitations Shoulder ROM Limitations Pain Elbow/Forearm Range of Motion Elbow/Forearm jojo Elbow/Forearm ROM WFL Yes PT-OP-L Special Tests Start: 02/16/22 16:52 Freq: Status: Active Protocol: Document 02/20/22 15:16 [facility] (Rec: 02/21/22 17:21 [facility] [id number]) Special Tests Shoulder Special Tests Elevation Impingement Test Results positive Grind Labrum Test Results negative AC Joint Compression Test Results positive Belly Press Test Results negative PT-OP-M Strength Start: 02/16/22 16:52 Freq: Status: Active Protocol: Document 02/20/22 15:16 [facility] (Rec: 02/21/22 17:21 [facility] [id number]) Shoulder Strength Shoulder Manual Muscle Testing Left Flexion 3- Fair- Extension 4- Good- Abduction (C5) 3- Fair- External Rotation 3+ Fair+ Internal Rotation 4- Good- Right Flexion 5 Normal Extension 5 Normal Abduction (C5) 5 Normal Adduction 5 Normal External Rotation 4+ Good+ Internal Rotation 5 Normal PT-OP-Q Treatments Start: 02/16/22 16:52 Freq: Status: Active Protocol: Document 03/10/22 09:49 SP (Rec: 03/10/22 10:36 SP [id number]) Therapeutic Exercises Supine Exercises pec stretch Supine Exercise Name pec stretch, FF, modif W w/ knees bent, next add 1/2 X on HO provided Resistance AROM Equipment Used noodle Reps/Minutes 6 min total Comments cued relax scap retraction/ depression ROM and improve toward abd/ER Prone Exercises UE Posterior Chain Prone Exercise Name Modified T, I- good form Side left Equipment Used 0# (no weight today due to UT recruitment AROM) Reps/Minutes 2x5 reps Comments cued modify T angle lower for tolerance pain free and no UT Sidelying Exercises open book Sidelying Exercise Name pillow support between knees/ ankles. Side bilateral Reps/Minutes 5x x 5-10SH Comments verbal and tactile cues for segmental movement, painfree ROM Sitting Exercises pulleys Sitting Exercise Name flexion, scaption, abduction Equipment Used mirror for self feedback no UE Reps/Minutes 10x ea Comments cued with good understanding no UT recruit, LT and slow pacing. Standing Exercises ball wall Standing Exercise Name L scap: UT, inter scap Equipment Used racquetball on wall (discussed putting in sock) Comments self STMs- good feedback results Doorway pec Stretch Standing Exercise Name changed to wall walking: FF, scaption, ABD Side left Reps/Minutes 3 reps each, hold 3 sec Comments improved decrease UT recruit and gains near full ROM- measure next tx PT-OP-R Modalities Start: 02/16/22 16:52 Freq: Status: Active Protocol: Document 03/03/22 14:26 NB (Rec: 03/03/22 16:08 [facility] [id number]) Hot Pack/Cold Pack Treatment Cold Pack Location left shoulder Patient Position Hooklying Treatment Duration (minutes) 10 Patient Tolerance Good PT-OP-T Assessment and Plan Start: 02/16/22 16:52 Freq: Status: Active Protocol: Document 03/10/22 09:49 SP (Rec: 03/10/22 10:36 SP [id number]) Physical Therapy Assessment Goals Strength Impairment weakness Impairment left shoulder weakness Short Term Goal (STG) patient to be instructed in HEP focused on left shoulder strengthening and stabilization STG Duration 03/23/22 Ell Teacher Goal (LTG) Patient will be independent and compliant with HEP and demonstrate 5/5 muscle strength left shoulder to help him return to all usual activities. LTG Duration 05/21/22 activity tolerance Impairment unable to reach overhead or behind his back with left UE without pain Shelter Goal (LTG) patient will demonstrate the ability to reach overhead and behind his back without pain or impingement symptoms to allow him to return to all prior activities including ADL 's and gardening LTG Duration 05/21/22 shoulder pain Impairment as high as 7/10 Ell Teacher Goal (LTG) Decrease left shoulder pain to no greater than 2/10 with all usual activities LTG Duration 05/21/22 Assessment Summary Assessment Pt responded well to wall and supine over noodle with reports soreness progressing into limiting ROM ABD w/ ER and end range FF, ABD but feels was really helpful to start getting back this movement, recovered in standing modified pendulum self ROM no pain leaving. See added HEP supine over foam roller (pec stretch supine and stand areas changed). Physical Therapy Plan Frequency and Duration Frequency of Treatment 2x/Week Duration of Treatment 12 weeks Plan of Care Start Date 02/20/22 Plan of Care End Date 05/21/22 Therapeutic Interventions Therapeutic Interventions Home Exercise Program,Manual Therapy,Patient/Caregiver Education,Self-Care/Home Management,Soft Tissue Mobilization,Taping, Therapeutic Activities, Therapeutic Exercises Modalities Cold Pack/Ice Massage,Electric Stimulation,Hot Packs, Iontophoresis,Ultrasound Next Visit Focus/Plan Next Note Type Treatment Note Next Visit Plan Review added supine/ stand L shld AROM (doorway/over noodle ) see scanned HOs. POC: postural education with ther ex for postural correction to improve shoulder alignment, ROM and strengthening exercises. Modalities and manual therapy as indicated.
--- NOTE | 2022-03-15 11:43 | PT.OTN ---
Current Diagnoses Other specific arthropathies, not elsewhere classified, left shoulder (03/15/22) Fracture of unspecified part of left clavicle, subsequent encounter for fracture with nonunion (03/15/22) Physical Therapy Treatment Note PT-OP-A Visit Information Start: 02/16/22 16:52 Freq: Status: Active Protocol: Document 03/15/22 11:03 NBM (Rec: 03/15/22 11:42 NBM [id number]) Out-Patient Physical Therapy Visit Information Visit Information Visit Type Treatment Note Visit Start Time 10:35 Visit Stop Time 11:24 Total Visit Minutes 49 Visit Number 6 Number of BUTTONHOLE MAKER Visits 4 PT-OP-B Current Condition Start: 02/16/22 16:52 Freq: Status: Active Protocol: Document 02/20/22 15:16 SAK (Rec: 02/20/22 15:46 SAK [id number]) Current Condition History of Current Condition Onset Date 4 months Current Complaints left shoulder pain History of Current Condition moving a large rock in flower beds on a dolley, pulling back , within the next week onset of pain. Prior surgery due to impingement in or 98. When pain first started felt like the prior impingement. Saw Dr. Schaefer, got pain pills due to interrupted sleep. Now never wakes him up, but still some difficulty lifting overhead and behind his back. Prior fractured clavicle with poor healing. Carpal tunnel syndrome. Not doing any exercises Prior Treatments and Tests x-ray Future Testing and Treatments Planned return to doctor if PT not helpful. Prior Functional Status Baseline Function- ADL's Independent Baseline Function- Mobility Independent Baseline Function- Work/School retired Baseline Function- Recreation/Hobbies no limitations Current Functional Impairments (Reported) Functional Limitations- ADL's painful Functional Limitations- Recreation/ painful Hobbies PT-OP-C Subjective Start: 02/16/22 16:52 Freq: Status: Active Protocol: Document 03/15/22 11:03 NBM (Rec: 03/15/22 11:42 NBM [id number]) OP-PT Subjective Patient Comments Patient Comments Pt can roll onto their left side now for a bit. Pt feels better overall. but catches it every once in a while reaching overhead and then takes a breath and can reach further. Pt can get down on all fours now to garden but couldn't do that a few months ago. PT-OP-H Neuro Start: 02/16/22 16:52 Freq: Status: Active Protocol: Document 02/20/22 15:16 [facility] (Rec: 02/20/22 15:46 [facility] [id number]) Sensation Evaluation Gross Sensation Gross Sensation WNL Comments Summary Comments initially some N/T, no longer PT-OP-J Posture/Palpation/Skin Start: 02/16/22 16:52 Freq: Status: Active Protocol: Document 02/20/22 15:16 [facility] (Rec: 02/21/22 17:21 [facility] [id number]) Posture Evaluation Position Standing Head/C-Spine Posture Forward Head T-Spine Posture Increased Kyphosis Scapula Posture (L) Protracted,(R) Protracted Arm Posture (L) Internally Rotated,(R) Internally Rotated Palpation Assessment Location RC left Palpation Findings Muscle Guarding,Tenderness PT-OP-K Range of Motion Start: 02/16/22 16:52 Freq: Status: Active Protocol: Document 02/20/22 15:16 [facility] (Rec: 02/20/22 15:46 [facility] [id number]) Cervical Spine Range of Motion Cervical Spine Active Testing Position Sitting Comments mild tightness, no increase in pain Shoulder Goniometric Range of Motion Shoulder Left Active Shoulder ROM WFL No Flexion 154 Extension 14 Abduction 123 External Rotation at 45 degrees 56 Abduction Internal Rotation Behind Back (text) top of buttock Right Active Shoulder ROM WFL Yes Internal Rotation Behind Back (text) T8 Shoulder ROM Limitations Shoulder ROM Limitations Pain Elbow/Forearm Range of Motion Elbow/Forearm jojo Elbow/Forearm ROM WFL Yes PT-OP-L Special Tests Start: 02/16/22 16:52 Freq: Status: Active Protocol: Document 02/20/22 15:16 [facility] (Rec: 02/21/22 17:21 [facility] [id number]) Special Tests Shoulder Special Tests Elevation Impingement Test Results positive Grind Labrum Test Results negative AC Joint Compression Test Results positive Belly Press Test Results negative PT-OP-M Strength Start: 02/16/22 16:52 Freq: Status: Active Protocol: Document 02/20/22 15:16 [facility] (Rec: 02/21/22 17:21 [facility] [id number]) Shoulder Strength Shoulder Manual Muscle Testing Left Flexion 3- Fair- Extension 4- Good- Abduction (C5) 3- Fair- External Rotation 3+ Fair+ Internal Rotation 4- Good- Right Flexion 5 Normal Extension 5 Normal Abduction (C5) 5 Normal Adduction 5 Normal External Rotation 4+ Good+ Internal Rotation 5 Normal PT-OP-Q Treatments Start: 02/16/22 16:52 Freq: Status: Active Protocol: Document 03/15/22 11:03 [facility] (Rec: 03/15/22 11:42 [facility] [id number]) Therapeutic Exercises Supine Exercises pec stretch Supine Exercise Name pec stretch, FF, modif W w/ knees bent, next add 1/2 X on HO provided Resistance AROM Equipment Used full foam roller, CGA Reps/Minutes 6 min total Comments pec stretch w/ core focus - challenging Prone Exercises UE Posterior Chain Prone Exercise Name Modified T, I, A - good form Side left Equipment Used 0# (no weight today due to UT recruitment AROM) Reps/Minutes 2x10 reps Comments cued modify T angle lower for pain-free, no UT Sitting Exercises pulleys Sitting Exercise Name flexion, scaption, abduction Equipment Used mirror for self feedback no UE Reps/Minutes 12x ea Comments cued with good understanding no UT recruit, LT and slow pacing. Standing Exercises ball wall Standing Exercise Name L scap: UT, inter scap Equipment Used racquetball on wall (discussed putting in sock) Comments self STMs- reminded as HEP, not performed today Doorway pec Stretch Standing Exercise Name changed to wall walking: FF, scaption, ABD Side bilateral Reps/Minutes 3 reps each, hold 3 sec Comments improved decrease UT recruit and gains near full ROM- measure next tx row, shld ext Equipment Used L3>L4 TB Reps/Minutes x10 L3, x5 L4 Comments VC and tactile cues posture, scapular depression, and slow eccentric PT-OP-R Modalities Start: 02/16/22 16:52 Freq: Status: Active Protocol: Document 03/15/22 11:03 [facility] (Rec: 03/15/22 11:42 [facility] [id number]) Hot Pack/Cold Pack Treatment Cold Pack Location left shoulder Patient Position Hooklying Treatment Duration (minutes) 10 Patient Tolerance Good PT-OP-T Assessment and Plan Start: 02/16/22 16:52 Freq: Status: Active Protocol: Document 03/15/22 11:03 [facility] (Rec: 03/15/22 11:42 [facility] [id number]) Physical Therapy Assessment Goals Strength Impairment weakness Impairment left shoulder weakness Short Term Goal (STG) patient to be instructed in HEP focused on left shoulder strengthening and stabilization STG Duration 03/23/22 Fdc Goal (LTG) Patient will be independent and compliant with HEP and demonstrate 5/5 muscle strength left shoulder to help him return to all usual activities. LTG Duration 05/21/22 activity tolerance Impairment unable to reach overhead or behind his back with left UE without pain Fdc Goal (LTG) patient will demonstrate the ability to reach overhead and behind his back without pain or impingement symptoms to allow him to return to all prior activities including ADL 's and gardening LTG Duration 05/21/22 shoulder pain Impairment as high as 7/10 Fdc Goal (LTG) Decrease left shoulder pain to no greater than 2/10 with all usual activities LTG Duration 05/21/22 Assessment Summary Assessment Pt continues to progress pain- free range of L shoulder AROM w/ occasional cueing for maintaining scapular setting in overhead range. Pt's core is challenged supine on foam roller SBA>CGA - pt's L shoulder now tolerates quadruped - can consider core progression w/ upper extremity weightbearing in quadruped. Pt forgets to try self-STMs despite handouts and is encouraged to use electronic reminder. Physical Therapy Plan Next Visit Focus/Plan Next Note Type Treatment Note Next Visit Plan Review added supine/ stand L shld AROM (doorway/over noodle ). Initiate quadruped core progression w/ UE weightbearing. POC: postural education with ther ex for postural correction to improve shoulder alignment, ROM and strengthening exercises. Modalities and manual therapy as indicated.
--- NOTE | 2022-03-21 12:14 | PT.OTN ---
Current Diagnoses Other specific arthropathies, not elsewhere classified, left shoulder (03/21/22) Fracture of unspecified part of left clavicle, subsequent encounter for fracture with nonunion (03/21/22) Physical Therapy Treatment Note PT-OP-A Visit Information Start: 02/16/22 16:52 Freq: Status: Active Protocol: Document 03/21/22 09:00 AW (Rec: 03/21/22 10:29 AW [id number]) Out-Patient Physical Therapy Visit Information Visit Information Visit Type Discharge Summary Visit Start Time 09:45 Visit Stop Time 10:30 Total Visit Minutes 45 Visit Number 7 Number of IMPREGNATOR AND DRIER Visits 0 Evaluation Information Evaluation Date 02/20/22 PT-OP-B Current Condition Start: 02/16/22 16:52 Freq: Status: Active Protocol: Document 02/20/22 15:16 SAK (Rec: 02/20/22 15:46 SAK [id number]) Current Condition History of Current Condition Onset Date 4 months Current Complaints left shoulder pain History of Current Condition moving a large rock in flower beds on a [place], pulling back , within the next week onset of pain. Prior surgery due to impingement in 97 or 98. When pain first started felt like the prior impingement. Saw Dr. Schaefer, got pain pills due to interrupted sleep. Now never wakes him up, but still some difficulty lifting overhead and behind his back. Prior fractured clavicle with poor healing. Carpal tunnel syndrome. Not doing any exercises Prior Treatments and Tests x-ray Future Testing and Treatments Planned return to doctor if PT not helpful. Prior Functional Status Baseline Function- ADL's Independent Baseline Function- Mobility Independent Baseline Function- Work/School retired Baseline Function- Recreation/Hobbies no limitations Current Functional Impairments (Reported) Functional Limitations- ADL's painful Functional Limitations- Recreation/ painful Hobbies PT-OP-C Subjective Start: 02/16/22 16:52 Freq: Status: Active Protocol: Document 03/21/22 09:00 AW (Rec: 03/21/22 10:29 AW [id number]) OP-PT Subjective Patient Comments Patient Comments Gideon has been working in the yard. Has not taken any pain medication in 4-5 days. PT-OP-H Neuro Start: 02/16/22 16:52 Freq: Status: Active Protocol: Document 02/20/22 15:16 SAK (Rec: 02/20/22 15:46 [facility] [id number]) Sensation Evaluation Gross Sensation Gross Sensation WNL Comments Summary Comments initially some N/T, no longer PT-OP-J Posture/Palpation/Skin Start: 02/16/22 16:52 Freq: Status: Active Protocol: Document 02/20/22 15:16 [facility] (Rec: 02/21/22 17:21 [facility] [id number]) Posture Evaluation Position Standing Head/C-Spine Posture Forward Head T-Spine Posture Increased Kyphosis Scapula Posture (L) Protracted,(R) Protracted Arm Posture (L) Internally Rotated,(R) Internally Rotated Palpation Assessment Location RC left Palpation Findings Muscle Guarding,Tenderness PT-OP-K Range of Motion Start: 02/16/22 16:52 Freq: Status: Active Protocol: Document 02/20/22 15:16 [facility] (Rec: 02/20/22 15:46 [facility] [id number]) Cervical Spine Range of Motion Cervical Spine Active Testing Position Sitting Comments mild tightness, no increase in pain Shoulder Goniometric Range of Motion Shoulder Left Active Shoulder ROM WFL No Flexion 154 Extension 14 Abduction 123 External Rotation at 45 degrees 56 Abduction Internal Rotation Behind Back (text) top of buttock Right Active Shoulder ROM WFL Yes Internal Rotation Behind Back (text) T8 Shoulder ROM Limitations Shoulder ROM Limitations Pain Elbow/Forearm Range of Motion Elbow/Forearm jojo Elbow/Forearm ROM WFL Yes PT-OP-L Special Tests Start: 02/16/22 16:52 Freq: Status: Active Protocol: Document 02/20/22 15:16 [facility] (Rec: 02/21/22 17:21 [facility] [id number]) Special Tests Shoulder Special Tests Elevation Impingement Test Results positive Grind Labrum Test Results negative AC Joint Compression Test Results positive Belly Press Test Results negative PT-OP-M Strength Start: 02/16/22 16:52 Freq: Status: Active Protocol: Document 02/20/22 15:16 [facility] (Rec: 02/21/22 17:21 [facility] [id number]) Shoulder Strength Shoulder Manual Muscle Testing Left Flexion 3- Fair- Extension 4- Good- Abduction (C5) 3- Fair- External Rotation 3+ Fair+ Internal Rotation 4- Good- Right Flexion 5 Normal Extension 5 Normal Abduction (C5) 5 Normal Adduction 5 Normal External Rotation 4+ Good+ Internal Rotation 5 Normal PT-OP-Q Treatments Start: 02/16/22 16:52 Freq: Status: Active Protocol: Document 03/21/22 09:00 AW (Rec: 03/21/22 10:29 AW [id number]) Cardio Equipment Upper Body Ergometer (UBE) Duration (Minutes) 5 RPM 75 Seat Position 11 Height 3.5 Other f/b Therapeutic Exercises Supine Exercises pec stretch Supine Exercise Name pec stretch, FF, modif W w/ knees bent, 1/2 X Resistance AROM Equipment Used full foam roller, CGA Reps/Minutes 6 min total Comments pec stretch w/ core focus - challenging Prone Exercises UE Posterior Chain Prone Exercise Name Modified T, I, A - on 55 cm ball Side bilateral Equipment Used 0# (no weight today due to UT recruitment AROM) Reps/Minutes 2x10 reps Comments cued modify T angle lower for pain-free, no UT Sitting Exercises pulleys Sitting Exercise Name flexion, scaption, abduction Equipment Used mirror for self feedback no UE Reps/Minutes 12x ea Comments cued with good understanding no UT recruit, LT and slow pacing. Standing Exercises Doorway pec Stretch Standing Exercise Name changed to wall walking: FF, scaption, ABD Side bilateral Reps/Minutes 3 reps each, hold 3 sec Comments improved decrease UT recruit and gains near full ROM- measure next tx row, shld ext Equipment Used L4 TB Reps/Minutes x10 L3, x5 L4 Comments VC and tactile cues posture, scapular depression, and slow eccentric Other Exercises quadruped Other Exercise Name quadruped - wrist fusions limit tolerance Resistance cat/cow, sidebend PT-OP-R Modalities Start: 02/16/22 16:52 Freq: Status: Active Protocol: Document 03/15/22 11:03 [facility] (Rec: 03/15/22 11:42 [facility] [id number]) Hot Pack/Cold Pack Treatment Cold Pack Location left shoulder Patient Position Hooklying Treatment Duration (minutes) 10 Patient Tolerance Good PT-OP-T Assessment and Plan Start: 02/16/22 16:52 Freq: Status: Active Protocol: Document 03/21/22 09:00 AW (Rec: 03/21/22 10:29 AW [id number]) Physical Therapy Assessment Goals Strength Impairment weakness Impairment left shoulder weakness Short Term Goal (STG) patient to be instructed in HEP focused on left shoulder strengthening and stabilization STG Duration 03/23/22 Head Of Geography Goal (LTG) Patient will be independent and compliant with HEP and demonstrate 5/5 muscle strength left shoulder to help him return to all usual activities. 03/21/22 - Still requires some cues to decrease UT involvement in some exercises but otherwise independent. MMT equal bilaterally in all planes. LTG Duration 05/21/22 activity tolerance Impairment unable to reach overhead or behind his back with left UE without pain Care Home Goal (LTG) patient will demonstrate the ability to reach overhead and behind his back without pain or impingement symptoms to allow him to return to all prior activities including ADL 's and gardening 03/21/22 - Mild pinch felt at end range IR but no other impingement symptoms LTG Duration 05/21/22 shoulder pain Impairment as high as 7/10 Head Of Geography Goal (LTG) Decrease left shoulder pain to no greater than 2/10 with all usual activities 03/21/22 - Average numeric pain rating 1.5/10 over past one week LTG Duration 05/21/22 Assessment Summary Assessment Mild limitations remain in flexion and IR ROM but all are pain-free except end range IR . Pt requires min cues to decrease UT involvement in exercise but is otherwise independent. Physical Therapy Plan Frequency and Duration Frequency of Treatment 2x/Week Duration of Treatment 12 weeks Plan of Care Start Date 02/20/22 Plan of Care End Date 05/21/22 Therapeutic Interventions Therapeutic Interventions Home Exercise Program,Manual Therapy,Patient/Caregiver Education,Self-Care/Home Management,Soft Tissue Mobilization,Taping, Therapeutic Activities, Therapeutic Exercises Modalities Cold Pack/Ice Massage,Electric Stimulation,Hot Packs, Iontophoresis,Ultrasound Discharge Physical Therapy Discharge Reasons Goals Met Discharge Comments Pt has met goals as noted above and is now able to complete all ADL's and yard work without shoulder pain. He is independent with HEP and appropriate for discharge at this time. Pt understands he will need a new referral if he wishes to return to PT.
== END 2022-03-22 14:00 ==
LOC: PHYS 09:45
PROVIDERS: Family Provider Student in an Organized Health Care Education/Training Program; PCP Student in an Organized Health Care Education/Training Program; Referring Provider Student in an Organized Health Care Education/Training Program; Visit Provider Student in an Organized Health Care Education/Training Program
DX: M12.812 Other specific arthropathies, not elsewhere classified, left shoulder (principal); S42.002K Fracture of unspecified part of left clavicle, subsequent encounter for fracture with nonunion
CPT/HCPCS: 97110; 97140; 97161; 97535

== ENCOUNTER → 2022-10-05 11:31 | Outpatient (CLI) | payer MEDICARE, SELFPAY ==
[2022-10-05 12:45] LABS: Alanine Aminotransferase 30 IU/L (<50); Albumin 3.9 g/dL (3.5-5.0); Albumin Globulin Ratio 1.2 (1.0-2.8); Alkaline Phosphatase 37 U/L (38-126); Aspartate Aminotransferase 23 IU/L (17-59); BUN Creatinine Ratio 18.2 (6-22); Bilirubin Total 0.6 mg/dL (0.2-1.3); Blood Urea Nitrogen 18 mg/dL (9-20); Calcium 9.1 mg/dL (8.4-10.2); Carbon Dioxide 26 mmol/L (22-32); Chloride 100 mmol/L (98-107); Cholesterol 172 mg/dL (140-199); Estimated Glomerular Filt Rate > 60 mL/min (>60); Globulin 3.3 g/dL (1.7-4.1); Glucose 157 mg/dL (80-110); HDL Cholesterol 45 mg/dL (40-60); HEMOLYSIS < 15 (0-50); LDL Cholesterol Calculated 91 mg/dL (<100); Potassium 4.2 mmol/L (3.4-5.1); Sodium 134 mmol/L (137-145); Total Protein 7.2 g/dL (6.3-8.2); Triglycerides 181 mg/dL (35-150)
[2022-10-05 13:15] LABS: Prostate Specific Antigen < 0.064 ng/mL (0.10-4.00)
== END ==
PROVIDERS: Family Provider Student in an Organized Health Care Education/Training Program; PCP Student in an Organized Health Care Education/Training Program; Referring Provider Student in an Organized Health Care Education/Training Program; Visit Provider Student in an Organized Health Care Education/Training Program
DX: E78.00 Pure hypercholesterolemia, unspecified (principal); Z85.46 Personal history of malignant neoplasm of prostate; I10 Essential (primary) hypertension; Z79.899 Other long term (current) drug therapy
CPT/HCPCS: 36415; 80053; 80061; 84153

== ENCOUNTER → 2023-05-28 16:47 | Outpatient (CLI) | payer MEDICARE, SELFPAY ==
[2023-05-28 17:52] LABS: Hemoglobin A1C% w Est Avg Glu 5.9 % (4.0-6.0)
[2023-05-28 17:57] LABS: BUN Creatinine Ratio 18.2 (6-22); Blood Urea Nitrogen 16 mg/dL (9-20); Calcium 9.3 mg/dL (8.4-10.2); Carbon Dioxide 26 mmol/L (22-32); Chloride 99 mmol/L (98-107); Estimated Glomerular Filt Rate > 60 mL/min (>60); Glucose 87 mg/dL (80-110); Sodium 134 mmol/L (137-145)
[2023-05-28 18:03] LABS: HEMOLYSIS 129 (0-50); Potassium 4.3 mmol/L (3.4-5.1)
== END ==
PROVIDERS: Family Provider Student in an Organized Health Care Education/Training Program; PCP Family Medicine; Referring Provider Family Medicine; Visit Provider Family Medicine
DX: E11.9 Type 2 diabetes mellitus without complications (principal); I10 Essential (primary) hypertension
CPT/HCPCS: 36415; 80048; 83036

== ENCOUNTER → 2024-01-02 09:48 | Outpatient (CLI) | payer MEDICARE, SELFPAY ==
[2024-01-02 10:46] LABS: Hemoglobin A1C% w Est Avg Glu 6.3 % (4.0-6.0)
[2024-01-02 10:55] LABS: BUN Creatinine Ratio 12.1 (6-22); Blood Urea Nitrogen 12 mg/dL (9-20); Calcium 9.1 mg/dL (8.4-10.2); Carbon Dioxide 29 mmol/L (22-32); Chloride 104 mmol/L (98-107); Estimated Glomerular Filt Rate > 60 mL/min (>60); Glucose 154 mg/dL (80-110); HEMOLYSIS < 15 (0-50); Potassium 4.4 mmol/L (3.4-5.1); Sodium 139 mmol/L (137-145)
[2024-01-02 11:28] LABS: Prostate Specific Antigen Scrn < 0.064 ng/mL (0.1-4.0)
== END ==
PROVIDERS: Family Provider Student in an Organized Health Care Education/Training Program; PCP Family Medicine; Referring Provider Family Medicine; Visit Provider Family Medicine
DX: E11.9 Type 2 diabetes mellitus without complications (principal); Z12.5 Encounter for screening for malignant neoplasm of prostate; I10 Essential (primary) hypertension
CPT/HCPCS: 36415; 80048; 83036; G0103

== ENCOUNTER → 2024-06-17 12:03 | Outpatient (CLI) | payer MEDICARE, SELFPAY ==
[2024-06-17 13:21] LABS: Hemoglobin A1C% w Est Avg Glu 6.4 % (4.0-6.0)
[2024-06-17 13:38] LABS: Alanine Aminotransferase 28 IU/L (<50); Albumin Globulin Ratio 1.3 (1.0-2.8); Alkaline Phosphatase 41 U/L (38-126); Aspartate Aminotransferase 28 IU/L (17-59); BUN Creatinine Ratio 16.7 (6-22); Bilirubin Total 0.7 mg/dL (0.2-1.3); Blood Urea Nitrogen 18 mg/dL (9-20); Calcium 9.4 mg/dL (8.4-10.2); Carbon Dioxide 23 mmol/L (22-32); Chloride 105 mmol/L (98-107); Cholesterol 150 mg/dL (140-199); Estimated Glomerular Filt Rate > 60 mL/min (>60); Glucose 157 mg/dL (80-110); HDL Cholesterol 51 mg/dL (40-60); HEMOLYSIS < 15 (0-50); LDL Cholesterol Calculated 56 mg/dL (<100); Potassium 4.3 mmol/L (3.4-5.1); Sodium 135 mmol/L (137-145); Triglycerides 214 mg/dL (35-150)
== END ==
PROVIDERS: Family Provider Student in an Organized Health Care Education/Training Program; PCP Family Medicine; Referring Provider Family Medicine; Visit Provider Family Medicine
DX: E11.9 Type 2 diabetes mellitus without complications (principal); Z00.00 Encounter for general adult medical examination without abnormal findings; I10 Essential (primary) hypertension; J43.9 Emphysema, unspecified; E78.00 Pure hypercholesterolemia, unspecified
CPT/HCPCS: 36415; 80053; 80061; 83036

== ENCOUNTER → 2024-07-07 14:16 | Outpatient (CLI) | payer MEDICARE, SELFPAY ==
[2024-07-07 15:16] LABS: Influenza A - CEPHEID Flu A NEGATIVE (NEGATIVE); Influenza B - CEPHEID Flu B NEGATIVE (NEGATIVE); Respiratory Syncytial Virus Negative (Negative)
[2024-07-07 15:22] LABS: COVID-19 CEPHEID 4-PLEX PCR Negative (Negative)
== END ==
PROVIDERS: Family Provider Student in an Organized Health Care Education/Training Program; PCP Family Medicine; Visit Provider Family Medicine
DX: R06.2 Wheezing (principal); R05.1 Acute cough
CPT/HCPCS: 0241U

== ENCOUNTER → 2024-07-26 12:30 | Outpatient (CLI) | payer MEDICARE, SELFPAY ==
--- NOTE | 2024-07-26 12:31 | DI.RAD.S_ITS ---
PROCEDURE: XR CHEST 2V INDICATIONS: cough TECHNIQUE: 2 views of the chest were acquired. COMPARISON: [facility], CT, CT CHEST WITHOUT CONTRAST, 11/01/2021, 11:29. FINDINGS: Surgical changes and devices: Right upper quadrant surgical clips. Lungs and pleura: Mild centrilobular emphysema. No pleural effusions or pneumothorax. Bilateral partially calcified pleural plaques and pleural thickening. Mediastinum: Mediastinal contours are normal. Heart size is normal. Bones and chest wall: Chronic left posterior 6th rib fracture. No suspicious bony abnormalities. Soft tissues appear unremarkable. 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 Otherwise, no acute cardiothoracic process. Dictated by: Kalpesh Jesus M.D. on 07/27/2024 at 20:42 Approved by: Kalpesh Jesus M.D. on 07/27/2024 at 20:45
== END ==
PROVIDERS: Family Provider Student in an Organized Health Care Education/Training Program; PCP Family Medicine; Referring Provider Family Medicine; Visit Provider Family Medicine
DX: J44.9 Chronic obstructive pulmonary disease, unspecified (principal); R05.9 Cough, unspecified
CPT/HCPCS: 71046

== ENCOUNTER → 2024-09-16 15:06 | Outpatient (CLI) | payer MEDICARE, SELFPAY ==
[2024-09-16 16:41] LABS: Hemoglobin A1C% w Est Avg Glu 6.1 % (4.0-6.0)
== END ==
PROVIDERS: Family Provider Student in an Organized Health Care Education/Training Program; PCP Family Medicine; Referring Provider Family Medicine; Visit Provider Family Medicine
DX: E11.9 Type 2 diabetes mellitus without complications (principal)
CPT/HCPCS: 36415; 83036

== ENCOUNTER → 2025-01-26 15:50 | Outpatient (CLI) | payer MEDICARE, SELFPAY ==
[2025-01-26 17:02] LABS: Hemoglobin A1C% w Est Avg Glu 6.3 % (4.0-6.0)
[2025-01-26 17:23] LABS: Blood Urea Nitrogen 17 mg/dL (9-20); Calcium 9.4 mg/dL (8.4-10.2); Carbon Dioxide 23 mmol/L (22-32); Chloride 105 mmol/L (98-107); Estimated Glomerular Filt Rate > 60 mL/min (>60); Glucose 80 mg/dL (70-99); HEMOLYSIS < 15 (0-50); Potassium 4.0 mmol/L (3.4-5.1); Sodium 136 mmol/L (137-145)
== END ==
PROVIDERS: PCP Family Medicine; Referring Provider Family Medicine; Visit Provider Family Medicine
DX: E11.9 Type 2 diabetes mellitus without complications (principal); I10 Essential (primary) hypertension
CPT/HCPCS: 36415; 80048; 83036